=== PATIENT | female | born 1985 | race Caucasian/White ===

== ENCOUNTER 2017-10-19 08:43 | Outpatient (CLI) | payer OTHER ==
[2017-10-19 17:33] LABS: HGB - HEMOGLOBIN 12.7 g/dL (12.0-16.0); MEAN CORPUSCULAR HEMOGLOBIN 29.9 pg (27.0-31.0); MEAN CORPUSCULAR HGB CONC 33.2 g/dL (32.0-36.0); MEAN CORPUSCULAR VOLUME 90.1 fL (81.0-99.0); MEAN PLATELET VOLUME 8.3 fL (7.9-10.8); RED BLOOD COUNT 4.26 10^6/uL (4.20-5.40); RED CELL DISTRIBUTION WIDTH 13.3 % (12.0-15.0)
== END 2017-10-19 08:44 | disposition home or self-care (01) ==
LOC: LAB.F 08:43
PROVIDERS: ATTEND Advanced Practice Midwife
DX: Z34.80 Encounter for supervision of other normal pregnancy, unspecified trimester (principal)
CPT/HCPCS: 36415; 82950; 85025

== ENCOUNTER 2020-02-08 14:44 | Outpatient (CLI) | payer OTHER | END 2020-02-08 14:45 | disposition home or self-care (01) | LOC: LAB.S 14:44 | PROVIDERS: ATTEND Physician Assistant | DX: Z11.59 Encounter for screening for other viral diseases (principal) | CPT/HCPCS: 36415; 86769 ==

== ENCOUNTER 2023-09-13 08:00 | Outpatient (CLI) | payer OTHER | END 2023-09-13 23:59 | disposition home or self-care (01) | LOC: LAB.S 08:00 | PROVIDERS: ATTEND Internal Medicine Gastroenterology | DX: R19.7 Diarrhea, unspecified (principal) | CPT/HCPCS: 82705; 82710; 83993 ==

== ENCOUNTER 2023-09-13 10:10 | Outpatient (CLI) | payer OTHER ==
[2023-09-13 14:47] LABS: HCT - HEMATOCRIT 45.5 % (37.0-47.0); HGB - HEMOGLOBIN 14.4 g/dL (12.0-16.0); MEAN CORPUSCULAR HEMOGLOBIN 28.8 pg (27.0-31.0); MEAN CORPUSCULAR HGB CONC 31.6 g/dL (32.0-36.0); MEAN PLATELET VOLUME 9.7 fL (7.9-10.8); RED CELL DISTRIBUTION WIDTH 12.8 % (12.0-15.0); WHITE BLOOD COUNT 8.1 x10^3/uL (4.8-10.8)
[2023-09-13 15:38] LABS: % IRON SATURATION 32 % (20-50); IRON 123 ug/dL (50-212); TOTAL IRON BINDING CAPACITY 379 ug/dL (250-450); TRANSFERRIN 271 mg/dL (203-362)
== END 2023-09-13 10:11 | disposition home or self-care (01) ==
LOC: LAB.S 10:10
PROVIDERS: ATTEND Internal Medicine Gastroenterology
DX: R19.7 Diarrhea, unspecified (principal)
CPT/HCPCS: 36415; 82705; 82710; 82784; 83540; 83993; 84466; 85027; 86364

== ENCOUNTER 2023-10-06 08:00 | Outpatient (CLI) | payer OTHER | END 2023-10-06 23:59 | disposition home or self-care (01) | LOC: LAB.R 08:00 | PROVIDERS: ATTEND Internal Medicine Gastroenterology | DX: R19.7 Diarrhea, unspecified (principal) | CPT/HCPCS: 81599; 82653 ==

== ENCOUNTER 2023-10-17 09:30 | Outpatient (CLI) | payer OTHER ==
--- NOTE | 2023-10-17 10:23 | XRAY Report ---
PROCEDURE: Abdomen 1 V INDICATIONS: FLANK PAIN TECHNIQUE: One view of the abdomen acquired. COMPARISON: None. FINDINGS: Surgical changes and devices: IUD is present overlying the pelvis. Bowel: Bowel gas pattern is amalia l. Soft tissues: No suspicious abdominal calcifications. Visualized solid organ contours appear normal in size. Bones: No suspicious bony lesions. IMPRESSION: No acute abdominal pathology. No calcifications overlying the expected location of the renal shadows or expected course of the ureters. Reviewed by: Penelope Zhao MD on 10/17/2023 10:22 AM PDT Approved by: Penelope Zhao MD on 10/17/2023 10:22 AM PDT Station ID: [id number]
== END 2023-10-17 09:31 | disposition home or self-care (01) ==
LOC: DI.S 09:30
PROVIDERS: ATTEND Internal Medicine Gastroenterology
DX: R10.9 Unspecified abdominal pain (principal)